=== PATIENT | female | born 1990 | race Two or more races ===

== ENCOUNTER 2024-01-06 04:23 | Observation (INO) | payer MEDICAID ==
[~2024-01-06] VITALS: Ht 152.4 cm; Wt 69.4 kg
[2024-01-06] MEDS ORDERED: PREN-96 PO (05:31)
== END 2024-01-06 05:59 | disposition home or self-care (01) ==
LOC: LDRP 04:23
PROVIDERS: ADMIT Obstetrics & Gynecology; ATTEND Obstetrics & Gynecology
DX: O36.8130 Decreased fetal movements, third trimester, not applicable or unspecified (principal); O24.419 Gestational diabetes mellitus in pregnancy, unspecified control; Z3A.28 28 weeks gestation of pregnancy; Z79.899 Other long term (current) drug therapy
CPT/HCPCS: 59025; 81002; 82948; 82962; 94760; G0378